=== PATIENT | female | born 1960 | race Caucasian/White ===

== ENCOUNTER 2021-08-11 12:38 | Emergency (ER) | payer MEDICARE, MEDICAID ==
[~2021-08-11] VITALS: Ht 162.6 cm; Wt 78.0 kg
[2021-08-11] MEDS ORDERED: HYDROCODONE/ACETAMINOPHEN 5/325MG TABLET PO STA (16:55)
[2021-08-11] MEDS ORDERED: T3 PO (18:24)
[2021-08-11] MEDS ORDERED: DOCU-150 PO (18:24)
[2021-08-11] MEDS ORDERED: NAPR-681 PO (18:24)
[2021-08-11] MEDS ORDERED: LIDO30CR46 TP (18:24)
[2021-08-11 18:42] VITALS: BP 126/84
== END 2021-08-11 18:43 | disposition home or self-care (01) ==
LOC: ER 12:38
DX: K64.4 Residual hemorrhoidal skin tags (principal); K60.2 Anal fissure, unspecified
CPT/HCPCS: 99283

== ENCOUNTER 2021-09-03 11:09 | Emergency (ER) | payer MEDICARE, MEDICAID ==
[~2021-09-03] VITALS: Ht 152.4 cm; Wt 78.0 kg
[~2021-09-03 11:09] MED LIST: DOCU-150 PO; LIDO30CR46 TP; NAPR-681 PO; T3 PO
[2021-09-03 11:10] VITALS: BP 106/79
[2021-09-03 11:50] LABS: BASOPHILS % 0.7 % (0.0-2.0); EOSINOPHILS % 9.4 % (0.0-5.0); HEMATOCRIT. 42.9 % (36.0-48.0); HEMOGLOBIN. 14.1 g/dL (12.0-16.0); MEAN CORPUSCULAR HEMOGLOBIN 30.1 pg (28.0-32.0); MEAN CORPUSCULAR VOLUME 91.4 fL (81.0-99.0); MEAN PLATELET VOLUME 8.7 fl (7.4-10.4); MONOCYTES % 8.7 % (2.0-8.0); NEUTROPHILS % 38.2 % (40.0-76.0); PLATELET 248 x1000/uL (130-400); RED BLOOD CELL COUNT 4.69 mill/uL (4.2-5.4)
[2021-09-03 11:58] LABS: CHLORIDE 101 mEq/L (98-107)
[2021-09-03 12:07] LABS: BETA HYDROXYBUTYRATE 0.7 mMol/L (0.0-0.3)
[2021-09-03] MEDS ORDERED: INSULIN REGULAR (HUMULIN R) 300UNITS/3ML VIAL SUBCUT ONE (13:15)
[2021-09-03 13:26] LABS: CLARITY URINE CLEAR (CLEAR); COLOR URINE YELLOW (YELLOW); KETONES URINE 2+ (NEGATIVE); LEUKOCYTE ESTERASE URINE NEGATIVE (NEGATIVE); NITRITE URINE NEGATIVE (NEGATIVE); OCCULT BLOOD URINE NEGATIVE (NEGATIVE); PROTEIN URINE NEGATIVE (NEGATIVE); SPECIFIC GRAVITY URINE 1.041 (1.005-1.030); UROBILINOGEN URINE 0.2 E.U./dL (0.2-1.0)
[2021-09-03] MEDS ORDERED: GLIP2.5T3 MT (15:09)
[2021-09-03] MEDS ORDERED: NITR-87 MT (15:09)
== END 2021-09-03 15:31 | disposition home or self-care (01) ==
LOC: ER 11:09
DX: N39.0 Urinary tract infection, site not specified (principal); E11.65 Type 2 diabetes mellitus with hyperglycemia; Z79.84 Long term (current) use of oral hypoglycemic drugs
CPT/HCPCS: 36415; 80053; 81003; 82010; 82962; 85025; 99283; J1815